=== PATIENT | male | born 1995 | race Caucasian/White ===

== ENCOUNTER 2017-07-23 00:37 | Emergency (ER) | payer BC ==
[2017-07-23] MEDS ORDERED: XYLOCAINE 2%/Epi 1:200000 20ML VIAL MPF IJ ONE (00:38)
[2017-07-23] MEDS ORDERED: XYLOCAINE 1%/Epi 1:100000 MDV 20 ML IJ ONE (01:11)
[2017-07-23] MEDS ORDERED: BACIGUENT PACKET TP ONE (01:11)
[2017-07-23] MEDS ORDERED: Adacel Vial IM ONE ×2 (01:11→01:24)
[2017-07-23] MEDS ORDERED: Rocephin 1000 MG INJ IM ONE (01:12)
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
[2017-07-23] MEDS ORDERED: BACIGUENT PACKET ONE (01:24)
[2017-07-23] MEDS ORDERED: XYLOCAINE 1% HCL 20 ML MDV ONE (01:24)
[2017-07-23] MEDS ORDERED: Rocephin 1000 MG INJ ONE (01:24)
[2017-07-23 03:02] VITALS: BP 124/66; PULSE 60; O2SAT 99
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
== END 2017-07-23 03:02 | disposition home or self-care (01) ==
LOC: ED 00:37
PROC: 0HQ0XZZ Repair Scalp Skin, External Approach (ICD-10-PCS; principal; 2017-07-23)
DX: S01.01XA Laceration without foreign body of scalp, initial encounter (principal); Y04.0XXA Assault by unarmed brawl or fight, initial encounter; S00.93XA Contusion of unspecified part of head, initial encounter; R42 Dizziness and giddiness; R51 Headache
CPT/HCPCS: 12001; 70450; 90471; 90715; 96372; 99284; J0696; A9270-GY